=== PATIENT | male | born 1960 | race Caucasian/White ===

== ENCOUNTER → 2017-10-19 12:11 | Outpatient (CLI) | payer OTHER, SELFPAY ==
[2017-10-19 12:51] LABS: Abs Immature Grans 0.01 k/cumm (0.0-0.09); Absolute Basophil Count 0.02 k/cumm (0.0-0.2); Absolute Neutrophil Count 4.14 k/cumm (1.2-6.7); Basophils % 0.3; Eosinophils % 2.7; HCT 39.6 % (40.0-50.0); HGB 13.7 g/dL (13.5-17.5); Immature Grans % 0.1; Lymphocytes % 32.1; Mean Corp. HGB Concentration 34.6 g/dL (32.0-36.0); Mean Corpuscular Hemoglobin 34.8 pg (27.0-33.0); Mean Corpuscular Volume 100.5 fL (80-95); Mean Platelet Volume 10.5 fL (8.0-11.0); Monocytes % 9.4; Neutrophils % 55.4; Platelet Count 209 x1000/uL (130-400); RBC 3.94 m/cumm (4.50-6.00); White Blood Cell Count 7.47 k/cumm (4.4-10.8)
[2017-10-19 15:05] LABS: ALT 35 U/L (12-78); AST 19 U/L (15-37); Albumin 4.2 g/dL (3.4-5.0); Alkaline Phosphatase 68 U/L (46-116); Anion Gap 10.4 mmol/L (3-11); BUN 19 mg/dL (7-18); Bilirubin, Total 0.4 mg/dL (0.2-1.0); C-Reactive Protein 0.14 mg/dL (0.0-0.3); CO2 26.6 mmol/L (21.0-32.0); CREATININE 0.98 mg/dL (0.70-1.30); Calcium 8.6 mg/dL (8.5-10.1); Chloride 106 mmol/L (98-107); Glucose 121 mg/dL (70-100); Sodium 143 mmol/L (136-145); Total Protein 6.9 g/dL (6.4-8.2)
[2017-10-19 15:22] LABS: ESR 14 MM/HR (1-20)
== END ==
PROVIDERS: PCP Internal Medicine; Visit Provider Internal Medicine
DX: M06.9 Rheumatoid arthritis, unspecified (principal); Z79.899 Other long term (current) drug therapy
CPT/HCPCS: 36415; 80053; 85652; 85025; 86140

== ENCOUNTER 2018-02-21 14:01 | Outpatient (CLI) | payer OTHER, SELFPAY ==
[2018-02-21 14:24] LABS: Abs Immature Grans 0.01 k/cumm (0.0-0.09); Absolute Basophil Count 0.02 k/cumm (0.0-0.2); Absolute Eosinophil Count 0.34 k/cumm (0.0-0.7); Absolute Lymphocyte Count 2.91 k/cumm (1.2-3.4); Absolute Monocyte Count 0.76 k/cumm (0.11-0.7); Absolute Neutrophil Count 3.46 k/cumm (1.2-6.7); Basophils % 0.3; Eosinophils % 4.5; HCT 40.9 % (40.0-50.0); HGB 14.3 g/dL (13.5-17.5); Immature Grans % 0.1; Lymphocytes % 38.8; Mean Corpuscular Hemoglobin 35.7 pg (27.0-33.0); Mean Platelet Volume 10.2 fL (8.0-11.0); Monocytes % 10.1; Neutrophils % 46.2; Platelet Count 187 x1000/uL (130-400); RBC 4.01 m/cumm (4.50-6.00)
[2018-02-21 15:25] LABS: ALT 34 U/L (12-78); AST 27 U/L (15-37); Albumin 4.1 g/dL (3.4-5.0); Alkaline Phosphatase 62 U/L (46-116); Anion Gap 10.1 mmol/L (3-11); BUN 18 mg/dL (7-18); Bilirubin, Total 0.3 mg/dL (0.2-1.0); C-Reactive Protein 0.67 mg/dL (0.0-0.3); CO2 27.9 mmol/L (21.0-32.0); CREATININE 0.98 mg/dL (0.70-1.30); Calcium 8.7 mg/dL (8.5-10.1); Chloride 102 mmol/L (98-107); Glucose 80 mg/dL (70-100); Sodium 140 mmol/L (136-145); Total Protein 7.2 g/dL (6.4-8.2)
[2018-02-21 15:28] LABS: ESR 15 MM/HR (1-20)
== END 2018-02-21 14:21 ==
PROVIDERS: PCP Internal Medicine; Visit Provider Internal Medicine
DX: M06.9 Rheumatoid arthritis, unspecified (principal); Z79.899 Other long term (current) drug therapy
CPT/HCPCS: 36415; 80053; 85652; 85025; 86140

== ENCOUNTER 2018-05-30 12:30 | Outpatient (CLI) | payer BC, SELFPAY ==
[2018-05-30 12:56] LABS: Abs Immature Grans 0.01 k/cumm (0.0-0.09); Absolute Basophil Count 0.02 k/cumm (0.0-0.2); Absolute Eosinophil Count 0.22 k/cumm (0.0-0.7); Absolute Lymphocyte Count 2.71 k/cumm (1.2-3.4); Absolute Monocyte Count 0.71 k/cumm (0.11-0.7); Absolute Neutrophil Count 4.25 k/cumm (1.2-6.7); Basophils % 0.3; Eosinophils % 2.8; HCT 39.9 % (40.0-50.0); HGB 14.3 g/dL (13.5-17.5); Immature Grans % 0.1; Lymphocytes % 34.2; Mean Corp. HGB Concentration 35.8 g/dL (32.0-36.0); Mean Corpuscular Hemoglobin 35.8 pg (27.0-33.0); Mean Corpuscular Volume 99.8 fL (80-95); Mean Platelet Volume 10.3 fL (8.0-11.0); Neutrophils % 53.6; Platelet Count 188 x1000/uL (130-400); White Blood Cell Count 7.92 k/cumm (4.4-10.8)
[2018-05-30 13:40] LABS: ALT 31 U/L (12-78); AST 24 U/L (15-37); Albumin 4.2 g/dL (3.4-5.0); Alkaline Phosphatase 60 U/L (46-116); Anion Gap 11.4 mmol/L (3-11); BUN 17 mg/dL (7-18); Bilirubin, Total 0.4 mg/dL (0.2-1.0); C-Reactive Protein 0.13 mg/dL (0.0-0.3); CO2 26.6 mmol/L (21.0-32.0); CREATININE 0.96 mg/dL (0.70-1.30); Calcium 8.8 mg/dL (8.5-10.1); Chloride 104 mmol/L (98-107); Glucose 90 mg/dL (70-100); Potassium 3.8 mmol/L (3.5-5.1); Sodium 142 mmol/L (136-145); Total Protein 6.9 g/dL (6.4-8.2)
[2018-05-30 13:47] LABS: ESR 10 MM/HR (1-20)
== END 2018-05-30 12:50 ==
PROVIDERS: PCP Internal Medicine; Visit Provider Internal Medicine
DX: M06.9 Rheumatoid arthritis, unspecified (principal); Z79.899 Other long term (current) drug therapy
CPT/HCPCS: 36415; 80053; 85652; 85025; 86140

== ENCOUNTER 2018-07-02 11:17 | Outpatient (CLI) | payer BC, SELFPAY ==
[2018-07-02 13:38] LABS: Cholesterol 180 mg/dL (50-200); HDL Cholesterol 44 mg/dL (40-60); LDL CHOLESTEROL 116 mg/dL (<100); Triglyceride 153 mg/dL (30-150)
== END 2018-07-02 11:37 ==
PROVIDERS: PCP Internal Medicine; Visit Provider Internal Medicine
DX: E03.9 Hypothyroidism, unspecified (principal); Z13.220 Encounter for screening for lipoid disorders
CPT/HCPCS: 36415; 80061; 83721; 84443

== ENCOUNTER 2018-08-30 09:09 | Outpatient (CLI) | payer BC, SELFPAY ==
--- NOTE | 2018-08-30 09:09 | DI.US_ITS ---
SYMPTOM/DIAGNOSIS: SCROTAL MASS N50.9 DISORDER MALE GENITAL ORGAN SCROTAL ULTRASOUND: 08/30 Scrotal ultrasound was performed according to the usual protocol. The patient reportedly has palpable abnormality of the scrotum on the left. This corresponds to an apparent epididymal tail cyst measuring about 17 mm in diameter. Note is also made of an intratesticular cyst on the right which is a simple cyst. There are small bilateral spermatoceles, the largest measuring about 3 mm in diameter. There is mild dilatation of the rete testis on the right which is a nonspecific finding. Bilateral testicular microlithiasis also noted. There is a left hydrocele measuring about 5 cm in greatest diameter with some internal debris. CONCLUSION: No testicular mass identified. Left hydrocele and multiple cysts noted as described above.
== END 2018-08-30 09:29 ==
PROVIDERS: PCP Internal Medicine; Visit Provider Internal Medicine
DX: N50.9 Disorder of male genital organs, unspecified (principal); N43.3 Hydrocele, unspecified; N50.3 Cyst of epididymis; N44.2 Benign cyst of testis; N43.42 Spermatocele of epididymis, multiple
CPT/HCPCS: 76870

== ENCOUNTER 2018-10-15 11:01 | Outpatient (CLI) | payer BC, SELFPAY ==
[2018-10-15 11:43] LABS: Abs Immature Grans 0.02 k/cumm (0.0-0.09); Absolute Basophil Count 0.01 k/cumm (0.0-0.2); Absolute Eosinophil Count 0.08 k/cumm (0.0-0.7); Absolute Lymphocyte Count 2.08 k/cumm (1.2-3.4); Absolute Monocyte Count 0.57 k/cumm (0.11-0.7); Absolute Neutrophil Count 5.74 k/cumm (1.2-6.7); Basophils % 0.1; Eosinophils % 0.9; HCT 39.2 % (40.0-50.0); HGB 13.8 g/dL (13.5-17.5); Immature Grans % 0.2; Lymphocytes % 24.5; Mean Corp. HGB Concentration 35.2 g/dL (32.0-36.0); Mean Corpuscular Hemoglobin 34.8 pg (27.0-33.0); Mean Corpuscular Volume 98.7 fL (80-95); Mean Platelet Volume 10.3 fL (8.0-11.0); Monocytes % 6.7; Neutrophils % 67.6; Platelet Count 205 x1000/uL (130-400); RBC 3.97 m/cumm (4.50-6.00); RBC Distribution Width 12.6 % (11.8-14.1)
[2018-10-15 12:43] LABS: ESR 8 mm/hr (1-20)
[2018-10-15 12:55] LABS: ALT 34 U/L (12-78); AST 19 U/L (15-37); Albumin 3.9 g/dL (3.4-5.0); Alkaline Phosphatase 56 U/L (46-116); Anion Gap 10.7 mmol/L (3-11); BUN 16 mg/dL (7-18); Bilirubin, Total 0.3 mg/dL (0.2-1.0); CO2 24.3 mmol/L (21.0-32.0); CREATININE 0.98 mg/dL (0.70-1.30); Calcium 8.8 mg/dL (8.5-10.1); Chloride 108 mmol/L (98-107); Glucose 111 mg/dL (70-100); Potassium 4.5 mmol/L (3.5-5.1); Sodium 143 mmol/L (136-145); Total Protein 6.8 g/dL (6.4-8.2)
== END 2018-10-15 11:21 ==
PROVIDERS: PCP Internal Medicine; Visit Provider Internal Medicine
DX: M06.9 Rheumatoid arthritis, unspecified (principal); Z79.899 Other long term (current) drug therapy
CPT/HCPCS: 36415; 80053; 85652; 85025; 86140

== ENCOUNTER 2019-02-06 13:29 | Outpatient (CLI) | payer BC, SELFPAY ==
[2019-02-06 14:07] LABS: Abs Immature Grans 0.02 k/cumm (0.0-0.09); Absolute Basophil Count 0.03 k/cumm (0.0-0.2); Absolute Eosinophil Count 0.21 k/cumm (0.0-0.7); Absolute Lymphocyte Count 3.44 k/cumm (1.2-3.4); Absolute Monocyte Count 0.84 k/cumm (0.11-0.7); Absolute Neutrophil Count 4.95 k/cumm (1.2-6.7); Basophils % 0.3; Eosinophils % 2.2; HCT 41.9 % (40.0-50.0); HGB 14.8 g/dL (13.5-17.5); Immature Grans % 0.2; Lymphocytes % 36.2; Mean Corp. HGB Concentration 35.3 g/dL (32.0-36.0); Mean Corpuscular Hemoglobin 35.2 pg (27.0-33.0); Mean Corpuscular Volume 99.8 fL (80-95); Mean Platelet Volume 10.7 fL (8.0-11.0); Monocytes % 8.9; Neutrophils % 52.2; Platelet Count 212 x1000/uL (130-400); RBC Distribution Width 13.1 % (11.8-14.1); White Blood Cell Count 9.49 k/cumm (4.4-10.8)
[2019-02-06 14:27] LABS: ALT 30 U/L (16-63); AST 21 U/L (15-37); Albumin 4.1 g/dL (3.4-5.0); Alkaline Phosphatase 63 U/L (46-116); Anion Gap 8.7 mmol/L (3-11); BUN 19 mg/dL (7-18); Bilirubin, Total 0.2 mg/dL (0.2-1.0); CO2 28.3 mmol/L (21.0-32.0); CREATININE 0.89 mg/dL (0.70-1.30); Chloride 107 mmol/L (98-107); Glucose 89 mg/dL (74-106); Potassium 3.9 mmol/L (3.5-5.1); Sodium 144 mmol/L (136-145); Total Protein 7.3 g/dL (6.4-8.2)
[2019-02-06 14:55] LABS: ESR 13 mm/hr (1-20)
== END 2019-02-06 13:49 ==
PROVIDERS: PCP Internal Medicine; Visit Provider Internal Medicine
DX: M06.9 Rheumatoid arthritis, unspecified (principal); Z79.899 Other long term (current) drug therapy
CPT/HCPCS: 36415; 80053; 85652; 85025; 86140

== ENCOUNTER 2019-08-20 04:04 | Outpatient (CLI) | payer BC, SELFPAY ==
[2019-08-20 11:07] LABS: Abs Immature Grans 0.01 k/cumm (0.0-0.09); Absolute Basophil Count 0.01 k/cumm (0.0-0.2); Absolute Eosinophil Count 0.28 k/cumm (0.0-0.7); Absolute Lymphocyte Count 3.23 k/cumm (1.2-3.4); Absolute Monocyte Count 0.86 k/cumm (0.11-0.7); Absolute Neutrophil Count 4.87 k/cumm (1.2-6.7); Basophils % 0.1; HCT 40.8 % (40.0-50.0); HGB 14.5 g/dL (13.5-17.5); Immature Grans % 0.1 %; Lymphocytes % 34.9; Mean Corp. HGB Concentration 35.5 g/dL (32.0-36.0); Mean Corpuscular Hemoglobin 34.9 pg (27.0-33.0); Mean Corpuscular Volume 98.1 fL (80-95); Mean Platelet Volume 10.4 fL (8.0-11.0); Monocytes % 9.3; Neutrophils % 52.6; Platelet Count 231 x1000/uL (130-400); RBC 4.16 m/cumm (4.50-6.00); RBC Distribution Width 12.7 % (11.8-14.1); White Blood Cell Count 9.26 k/cumm (4.4-10.8)
[2019-08-20 11:56] LABS: ALT 36 U/L (16-63); AST 26 U/L (15-37); Albumin 4.3 g/dL (3.4-5.0); Alkaline Phosphatase 62 U/L (46-116); Anion Gap 11.2 mmol/L (3-11); BUN 22 mg/dL (7-18); Bilirubin, Total 0.5 mg/dL (0.2-1.0); C-Reactive Protein 0.14 mg/dL (0.0-0.3); CO2 25.8 mmol/L (21.0-32.0); CREATININE 1.08 mg/dL (0.70-1.30); Calcium 8.8 mg/dL (8.5-10.1); Chloride 103 mmol/L (98-107); Glucose 106 mg/dL (74-106); Potassium 3.8 mmol/L (3.5-5.1); Sodium 140 mmol/L (136-145)
[2019-08-20 12:18] LABS: ESR 11 mm/hr (1-20)
== END 2019-08-20 04:24 ==
PROVIDERS: PCP Internal Medicine; Visit Provider Internal Medicine
DX: M06.9 Rheumatoid arthritis, unspecified (principal); Z79.899 Other long term (current) drug therapy
CPT/HCPCS: 36415; 80053; 85652; 85025; 86140

== ENCOUNTER 2019-08-25 12:32 | Emergency (ER) | payer BC, SELFPAY ==
[2019-08-25 12:38] VITALS: BP 124/80; PULSE 72; RESP 15; TEMP 36.9; O2SAT 100
--- NOTE | 2019-08-25 13:00 | DI.RAD_ITS ---
EXAM: XR HAND RT COMPLETE CLINICAL HISTORY: pain 4th, 5th. TECHNIQUE: 2D digital imaging was performed. COMPARISON: No exams were available for comparison FINDINGS: There is a comminuted oblique fracture the right 5th metacarpal. There is 3 mm of anterior displacem ent of the distal fracture noted. No other fracture or dislocation is identified. There is soft tis durga swelling about the ulnar aspect of the hand. No radiopaque foreign bodies are identified. IMPRESSION: Mildly displaced comminuted fracture of the right 5th metacarpal. DATA REPOSITORY: RADIATION DOSE DELIVERED:
--- NOTE | 2019-08-25 13:08 | ED.GENADUL_ITS ---
Discharge Plan Disposition Patient Disposition: HOME Condition: Stable Discharge Details Chief Complaint: Orthopedic Clinical Impression: Laceration, Fracture of fifth metacarpal bone Primary Care Provider: Joellen Wynne ED Provider: Charla Loving Home Meds and New Rx's Prescriptions: Continued multivitamin [Daily Multi-Vitamin] 1 EACH tablet 1 ea PO DAILY RF: 0 calcium carbonate [Calcium 600] 600 MG tablet 600 mg PO DAILY RF: 0 cholecalciferol (vitamin D3) [Vitamin D3] 2,000 UNIT capsule 2,000 unit PO DAILY RF: 0 methotrexate sodium 2.5 MG tablet 10 mg PO WEEKLY Qty: 16 RF: 3 folic acid 1 MG tablet 1 mg PO DAILY Qty: 30 RF: 3 Humira 40 MG/0.8 ML kit 40 mg SQ q 2 wks RF: 0 oxycodone-acetaminophen [Endocet] 1 EACH tablet 1 ea PO Q12H PRN PRNRF: 0 hydroxychloroquine 200 MG tablet 200 mg PO BID RF: 0 albuterol sulfate [ProAir HFA] 8.5 GM HFA aerosol inhaler 2 puff Inhalation q4 PRNQty: 1 RF: 12 mometasone [Nasonex] 17 GM spray,non-aerosol 2 spry NS DAILY RF: 0 montelukast 10 MG tablet 10 mg PO DAILY RF: 0 levothyroxine [Synthroid] 100 mcg tablet 100 mcg PO DAILY Qty: 90 RF: 2 Discharge Instructions Instructions: Laceration (ED) Additional Instructions: Keep splint in place, clean and dry. Elevate arm for swelling. Ice over the splint 3-5 times a day. Use Tylenol for discomfort if needed or use your daily medications. Follow-up with orthopedic doctor for reevaluation this week as discussed. For any developing concerns of infection in the finger return to the emergency room. Return for any worsening, concerns or alarming symptoms sooner if needed Referrals: Juan Thomas MD [ [facility] STAFF PHYSICIAN] - Medical Decision Making Is a 59-year-old patient who accidentally struck his right hand into the block of a machine. Patient presents complaining of right hand pain. Injury occurred prior to arrival at work. Patient does have wounds noted to his third fourth and fifth digit the most significant of which is the fourth digit which has a laceration 2 cm irregularly shaped noted over the PIP joint dorsally. No palmar involvement. Patient does have notable swelling to the fifth metacarpal with tenderness with palpation of the site. Patient does not have any scissoring of his digits when making a fist. Patient denies any numbness, tingling or weakness of the hand. Patient denies any wrist pain or indication of proximal injury. Patient has no other injuries or concerns today. Patient's tetanus is up-to-date last year. Plan to obtain x-ray evaluation of patient's hand for concern of possible fracture. Minor superficial wound of the third digit, laceration of the fourth digit plan to suture, small flap less than 1 cm laceration to the fifth digit plan to managed with wound care. Fourth digit laceration, area was prepped. Lidocaine locally, 5 sutures placed. Good wound approximation. Nothing to indicate ligamentous injury or deep extension, no joint involvement noted on exploration of wound. Dressings applied X-ray reveals mildly displaced comminuted fracture of the right 5th metacarpal. Spoke with Dr. Thomas of orthopedic surgery who reviewed patient's images and recommends ulnar gutter splint. Made him aware of the laceration noted on the fourth digit. He recommends keeping dressing in place until they will evaluate both the laceration and the fracture in the office next week. This recommendation was provided to the patient. Patient agrees with this plan of care. Added ulnar gutter splint placed with 4 inch Ortho-Glass. Patient tolerated without difficulty. Remains distal neurovascularly intact after splinting Infection precautions discussed as patient is immunocompromised on Humira due to RA The patient was stable and requested discharge. Prior to discharge, my usual and customary return precautions were reviewed with the patient - this included follow-up instructions and reasons to return to the Emergency Department if conditions worsens, does not improve as expected, or other new concerns arise. HPI General Date/Time Provider Initiated Documentation: 08/25/19 13:02 . HPI Narrative: This is a 59-year-old patient presented to the emergency room for complaints of a right hand injury. Patient was working and he accidentally struck his right hand on the hydraulics in the position of a fist. Patient presents with lacerations to the fourth and fifth digits as well as complaints of pain at the fifth metacarpal. Patient denies numbness, tingling or weakness. No pain proximal to the wrist. Denies any wrist pain with flexion or extension. Patient reports his tetanus was up-to-date last year. Patient denies any other sites of pain or concerns. Injury occurred prior to arrival. Related Data Home Medications Medication Instructions Recorded Confirmed multivitamin [Daily Multi-Vitamin] 1 ea PO DAILY 05/29/12 08/25/19 calcium carbonate [Calcium 600] 600 mg PO DAILY 01/27/14 08/25/19 cholecalciferol (vitamin D3) 2,000 unit PO DAILY 01/27/14 08/25/19 [Vitamin D3] folic acid 1 mg PO DAILY #30 tab-cap 05/05/14 08/25/19 methotrexate sodium 10 mg PO WEEKLY #16 tab 05/05/14 08/25/19 Humira 40 mg SQ q 2 wks kit 07/13/14 08/25/19 hydroxychloroquine 200 mg PO BID 12/31/14 08/25/19 oxycodone-acetaminophen [Endocet] 1 ea PO Q12H PRN PRN 12/31/14 08/25/19 albuterol sulfate [ProAir HFA] 2 puff INHALATION q4 PRN #1 inhaler 06/05/16 08/25/19 mometasone [Nasonex] 2 spry NS DAILY spray 08/17/16 08/25/19 montelukast 10 mg PO DAILY tab-cap 08/17/16 08/25/19 levothyroxine 100 mcg tablet 100 mcg PO DAILY #90 tab-cap 06/03/19 08/25/19 Previous Rx's Medication Instructions Recorded levothyroxine 100 mcg tablet 100 mcg PO DAILY #90 tab-cap 06/03/19 Allergies Allergy/AdvReac Type Severity Reaction Status Date / Time No Known Allergies Allergy Verified 08/25/19 12:43 General Stated Complaint: Orthopedic SIOBHAN: 4 Review of Systems All systems reviewed & are unremarkable except as noted in HPI and below PFSH Surgical History Excision, Lipoma Skin of cheek Right Orbital Rim, Excision: -Basal cell carcinoma,nodular type. -margins of excision negative, but close (surg path note 09/07/16) Family History (Updated 04/21/14 @ 22:12 by Joellen Wynne MD) Brother No problems noted. Other Prostate cancer Social History Smoking/Tobacco Use Status: Former Tobacco Use Alcohol Intake: never Drug use: Never Substance use type: does not use Number of Children: 4 Communication Needs: None What is your relationship status?: Panel score (0-1 are the most socially isolated patients): 1 What type of physical activity do you participate in: other Details: active daily Seatbelt use: always Drive intox or ride w/intox transfer driver: No Working smoke detector in home: Yes Carbon monox detector in home: Yes Do you feel safe at home: Yes Do you feel safe in your relationship?: Yes Exam Narrative Exam Narrative: CONST: Healthy appearing patient, in no acute distress. Well hydrated. Alert and oriented. HENMT: Head nomocephalic, normal to inspection. Atraumatic. Hearing grossly normal. EYES: General normal appearance. Alignment normal. Eyelids normal. Conjunctiva normal. NECK: Normal visual inspection. FROM. Trachea midline. No Midline tenderness. CHEST: Normal insepection of the chest. RESP: Normal respiratory effort. Speaking full sentences. No cough. No audible wheezing. No retractions. CARDIO: No JVD. MUSCULOSKELETAL: Normal Gait. FROM of all extremities. No right elbow pain with palpation, forearm pain with palpation or wrist pain with palpation. Flexion extension intact and wrist. Patient has no significant first or second digit pain with palpation. Mild third digit pain with palpation, moderate fourth and fifth metacarpal tenderness. Swelling noted over the fifth metacarpal distally. Patient with lacerations noted to the fourth and fifth digits. Patient has a 2 cm laceration noted on the dorsal aspect overlying the PIP joint of the fourth digit. Small V-shaped flap type laceration over the PIP joint of the fifth digit more superficial. Sensation intact throughout hand. SKIN: Normal. Dry. No rashes. See above description of lacerations on fourth and fifth digits NEURO: Alert and awake. Speech clear. PSYCH: Normal affect. Cooperative. Course Vital Signs Vital signs: Vital Signs Temperature 36.9 C 08/25/19 12:38 Pulse 72 08/25/19 12:38 Respiratory Rate 15 08/25/19 12:38 Blood Pressure 124/80 08/25/19 12:38 Pulse Oximetry 100 08/25/19 12:38 Temperature 36.9 C 08/25/19 12:38 Temperature Source Oral 08/25/19 12:38 Pulse 72 08/25/19 12:38 Respiratory Rate 15 08/25/19 12:38 Respiratory Effort Non-Labored 08/25/19 12:43 Blood Pressure 124/80 08/25/19 12:38 Blood Pressure Position Sitting 08/25/19 12:38 Pulse Oximetry 100 08/25/19 12:38 Oxygen Delivery Method Room Air 08/25/19 12:38 Oxygen Flow Rate 0 08/25/19 12:38 Pain Level 3 08/25/19 12:48 Procedures Laceration Laceration 1: Side (If applicable): right Size (cm): 2 Description: irregular Depth: simple, single layer Local Anesthetic: Lidocaine 1% Amount of anesthesia used (mL): 1 Pre-repair: wound explored Skin layer closed with: other (prolene) Size (cm): 4-0 Number of sutures: 5 Technique: simple, interrupted
[2019-08-25 16:10] VITALS: BP 124/80; PULSE 72; RESP 15; TEMP 36.9; O2SAT 100
== END 2019-08-25 16:10 | disposition home or self-care (01) ==
PROVIDERS: Emergency Provider Physician Assistant; PCP Internal Medicine
DX: S62.321A Displaced fracture of shaft of second metacarpal bone, left hand, initial encounter for closed fracture (principal); W31.89XA Contact with other specified machinery, initial encounter; Y99.0 Civilian activity done for income or pay
CPT/HCPCS: 12001; 26600; 73130

== ENCOUNTER 2019-08-29 03:57 | Outpatient (CLI) | payer BC, SELFPAY ==
--- NOTE | 2019-08-29 10:13 | DI.RAD_ITS ---
EXAM: XR FOOT LT COMPLETE CLINICAL HISTORY: PAIN, EVALUATE FOR EROSIVE CHANGES,NIEVES METATARSAL ROWS,NIEVES GREAT TOE TECHNIQUE: COMPARISON: No exams were available for comparison FINDINGS: Three views were obtained. The cartilaginous joint spaces of the joints of the midfoot and forefoot appear fairly well maintained. The requisition raises the possibility of erosive changes, I would no te that there may be tiny erosions of the lateral aspect base of the proximal phalanx of the great to e, this is a questionable finding. No other erosive or destructive process seen. IMPRESSION: Question minimal erosion lateral aspect of the base of the proximal phalanx of the great toe, please correlate clinically.
== END 2019-08-29 04:17 ==
PROVIDERS: PCP Internal Medicine; Visit Provider Internal Medicine
DX: M79.672 Pain in left foot (principal); M79.675 Pain in left toe(s)
CPT/HCPCS: 73630

== ENCOUNTER 2019-09-04 00:42 | Outpatient (CLI) | payer BC, SELFPAY ==
--- NOTE | 2019-09-04 | DI.CT_ITS ---
EXAM: CT SINUS WO CLINICAL HISTORY: NASAL POLYP, J33.9. Evaluate for sinusitis. TECHNIQUE: Imaging Protocol: Axial computed tomography images with coronal and sagittal reformatted images were created and reviewed. COMPARISON: No exams were available for comparison FINDINGS: AXIAL IMAGES: Frontal sinuses: Complete opacification of the right frontal sinus. Mild mucosal thickening in the l eft frontal sinus. Ethmoid air cells: Opacification of almost all of the ethmoid air cells bilaterally. Maxillary sinuses: Postsurgical changes in the maxillary sinuses. Near complete opacification of the maxillary sinuses bilaterally. Sphenoid sinus: Mild mucosal thickening in the sphenoid sinuses bilaterally. Ostiomeatal complexes: Postsurgical changes in the paranasal sinuses. Osseous nasal septum: Midline. Visualized regional soft tissues: No acute findings. Orbits: Unremarkable. Bones: Unremarkable. Mastoid Air Cells: Normally aerated. IMPRESSION: 1. Postsurgical changes in the paranasal sinuses. 2. Findings of chronic sinusitis most marked in the ethmoids, maxillary and frontal sinuses. RADIATION DOSE DELIVERED: Total DLP DATA REPOSITORY: All CT scans at this facility are submitted to the National Radiology Data Registry (NRDR) Dose Index Registry (DIR) with the [employer] (ACR). RADIATION OPTIMIZATION: All CT scans at this facility use at least one of these dose optimization te chniques: automated exposure control; mA and/or kV adjustment per patient size (includes targeted exa ms where dose is matched to clinical indication); or iterative reconstruction.
== END 2019-09-04 01:02 ==
PROVIDERS: PCP Internal Medicine; Visit Provider Otolaryngology
DX: J33.9 Nasal polyp, unspecified (principal); J32.2 Chronic ethmoidal sinusitis; J32.1 Chronic frontal sinusitis; J32.0 Chronic maxillary sinusitis
CPT/HCPCS: 70486

== ENCOUNTER 2019-12-05 03:09 | Outpatient (CLI) | payer BC, SELFPAY ==
[2019-12-05 14:38] LABS: TSH (W/Ref FT4) 3.16 uIU/mL (0.36-3.74)
== END 2019-12-05 03:29 ==
PROVIDERS: PCP Internal Medicine; Visit Provider Internal Medicine
DX: E03.9 Hypothyroidism, unspecified (principal)
CPT/HCPCS: 36415; 84443

== ENCOUNTER 2020-01-05 09:19 | Outpatient (CLI) | payer BC, SELFPAY ==
--- NOTE | 2020-01-05 09:15 | DI.RAD_ITS ---
EXAM: XR SHOULDER LT COMPLETE 2+V CLINICAL HISTORY: left shoulder pain. TECHNIQUE: 2D digital imaging was performed. COMPARISON: No exams were available for comparison FINDINGS: BONES: No acute fracture is present. No bony destructive lesion is seen. JOINTS: No dislocation present. Mild degenerative changes at the acromioclavicular joint. The glenoh umeral joint is unremarkable. SOFT TISSUE: Normal. IMPRESSION: Mild degenerative changes of the left AC joint. DATA REPOSITORY: RADIATION DOSE DELIVERED:
== END 2020-01-05 09:39 ==
PROVIDERS: PCP Internal Medicine; Referring Provider Internal Medicine; Visit Provider Physician Assistant
DX: M19.012 Primary osteoarthritis, left shoulder (principal)
CPT/HCPCS: 73030

== ENCOUNTER 2020-01-09 03:20 | Outpatient (CLI) | payer BC, SELFPAY ==
[2020-01-11 11:37] LABS: SARS-CoV-2 RNA Not Detected (NotDetected); SARS-CoV-2 RNA Source Nasal/Nares
== END 2020-01-09 03:40 ==
PROVIDERS: PCP Internal Medicine; Visit Provider Internal Medicine
DX: Z11.59 Encounter for screening for other viral diseases (principal); Z01.818 Encounter for other preprocedural examination
CPT/HCPCS: U0003

== ENCOUNTER 2020-01-19 00:28 | Outpatient (CLI) | payer BC, SELFPAY ==
--- NOTE | 2020-01-19 06:45 | DI.MRI_ITS ---
EXAM: MR UPPER JOINT LT WO CLINICAL HISTORY: L SHOULDER PAIN,BICEPS TENDINITIS,M75.22,STRAIN OF MUSCLE,TENDON,S46.012A. TECHNIQUE: Multiplanar multisequence MRI was performed. COMPARISON: CR XR SHOULDER LT COMPLETE 2+V from 01/05/2020 FINDINGS: BONES: There is no fracture or contusion pattern. JOINTS: Moderate degenerative changes of the acromioclavicular joint. The glenohumeral joint is norm al. Mild degenerative changes seen in the greater tuberosity. TENDONS: Supraspinatus: Tendinosis of the supraspinatus tendon. Hyperintense signal seen in the mid supraspin atus tendon suspicious for partial tear. Infraspinatus: Unremarkable. Subscapularis: Tendinosis and/or partial tear of the subscapularis tendon at its insertion site. Teres Minor: Unremarkable. Biceps and [place]: Mild tendinosis of the biceps tendon. MUSCLES: Unremarkable. GLENOID LABRUM: Unremarkable on this noncontrast examination. SOFT TISSUES: Unremarkable. LIGAMENTS: Unremarkable. OTHER: Subacromial and subdeltoid bursae are unremarkable. IMPRESSION: 1. Findings suspicious for partial tear in the mid supraspinatus tendon. 2. Tendinosis and/or partial tear of the subscapularis tendon at its insertion site. 3. Tendinosis of the biceps tendon. 4. Degenerative changes seen at the acromioclavicular joint and greater tuberosity. DATA REPOSITORY:
== END 2020-01-19 00:48 ==
PROVIDERS: PCP Internal Medicine; Visit Provider Student in an Organized Health Care Education/Training Program
DX: M75.22 Bicipital tendinitis, left shoulder (principal); S46.012A Strain of muscle(s) and tendon(s) of the rotator cuff of left shoulder, initial encounter; M19.012 Primary osteoarthritis, left shoulder
CPT/HCPCS: 73221

== ENCOUNTER 2020-02-19 01:42 | Outpatient (CLI) | payer BC, SELFPAY ==
[2020-02-19 13:31] LABS: HCT 39.8 % (40.0-50.0); HGB 13.9 g/dL (13.5-17.5); MCH 35.3 pg (27.0-33.0); MCHC 34.9 % (32.0-36.0); MPV 10.2 fL (8.0-11.0); Platelet Count 238 10^3/uL (130-400); RBC 3.94 10^6/uL (4.36-5.78); RDW 12.6 % (11.8-14.1); RDW-SD 47.4 fL; WBC 7.42 10^3/uL (4.4-10.8)
[2020-02-19 14:17] LABS: ESR 18 mm/hr (1-20)
[2020-02-19 14:35] LABS: ALT 43 U/L (16-63); AST 26 U/L (15-37); Alkaline Phosphatase 65 U/L (46-116); Anion Gap 9.5 mmol/L (3-11); BUN 16 mg/dL (7-18); Bilirubin, Total 0.4 mg/dL (0.2-1.0); C-Reactive Protein 0.15 mg/dL (0.0-0.3); CO2 26.5 mmol/L (21.0-32.0); CREATININE 1.06 mg/dL (0.70-1.30); Calcium 8.9 mg/dL (8.5-10.1); Chloride 105 mmol/L (98-107); Glucose 102 mg/dL (74-106); Sodium 141 mmol/L (136-145)
== END 2020-02-19 02:02 ==
PROVIDERS: PCP Internal Medicine; Visit Provider Internal Medicine
DX: N06.9 Isolated proteinuria with unspecified morphologic lesion (principal); Z79.899 Other long term (current) drug therapy
CPT/HCPCS: 36415; 80053; 85027; 85652; 86140

== ENCOUNTER 2020-03-04 01:46 | Outpatient (CLI) | payer BC, SELFPAY ==
--- NOTE | 2020-03-04 13:40 | DI.DEXA_ITS ---
EXAM: XR DEXA BONE DENSITY W/WO BRANDEE CLINICAL HISTORY: FRACTURES INVOLVING MULT SITES,T07.XXXA,SEROPOSITIVE RHEUMATOID ARTHRITIS, TECHNIQUE: Routine DEXA evaluation of the lumbar spine, hip, or forearm. COMPARISON: No exams were available for comparison FINDINGS: Performed on a Hologic unit. Lateral image: No compression fracture evident. Lumbar Spine total T-score: -1.3 Hip total T-score:-1.3 independent reading at the femoral neck yields a T-score reading of -2.1. Forearm total T-score: -1.5 IMPRESSION: Bone mineral density measures in the osteopenia range. Fracture risk is moderate. Note: Any spine fracture indicates 5x risk for subsequent spine fracture and 2x risk for subsequent h ip fracture. World Health Organization criteria for BMD interpretation classify patients: Normal...... T- Score at or above -1.0 Osteopenic... T- Score between -1.0 and -2.5 Osteoporosis... T-Score at or below -2.5
== END 2020-03-04 02:06 ==
PROVIDERS: PCP Internal Medicine; Visit Provider Internal Medicine
DX: M85.89 Other specified disorders of bone density and structure, multiple sites (principal); M05.9 Rheumatoid arthritis with rheumatoid factor, unspecified
CPT/HCPCS: 77080

== ENCOUNTER 2020-06-15 08:28 | Day surgery (SDC) | payer BC, SELFPAY ==
--- NOTE | 2020-06-15 07:53 | W.PM.DSUDISC ---
Discharge Plan Disposition Patient Disposition: HOME Condition: Good Discharge Details Reason For Visit: Right ring finger trigger finger Attending Provider: Jose Oliver Primary Care Provider: Joellen Wynne Home Meds and New Rx's Prescriptions: New acetaminophen [Tylenol Extra Strength] 500 mg tablet 500 mg PO Q6H PRNQty: 90 RF: 0 ibuprofen 600 mg tablet 600 mg PO TID Qty: 90 RF: 0 Continued multivitamin [Daily Multi-Vitamin] 1 EACH tablet 1 ea PO DAILY RF: 0 calcium carbonate [Calcium 600] 600 MG tablet 600 mg PO DAILY RF: 0 cholecalciferol (vitamin D3) [Vitamin D3] 2,000 UNIT capsule 2,000 unit PO DAILY RF: 0 methotrexate sodium 2.5 MG tablet 10 mg PO WEEKLY Qty: 16 RF: 3 folic acid 1 MG tablet 1 mg PO DAILY Qty: 30 RF: 3 Humira 40 MG/0.8 ML kit 40 mg SQ q 2 wks RF: 0 hydroxychloroquine 200 MG tablet 200 mg PO BID RF: 0 albuterol sulfate [ProAir HFA] 8.5 GM HFA aerosol inhaler 2 puff Inhalation q4 PRNQty: 1 RF: 12 montelukast 10 MG tablet 10 mg PO DAILY RF: 0 levothyroxine [Synthroid] 100 mcg tablet 100 mcg PO DAILY Qty: 90 RF: 2 budesonide 32 mcg/actuation spray,non-aerosol 1 spray intranasal DAILY RF: 0 Discharge Instructions Stand Alone Forms: Melody Rivera Finger Release Referrals: Jose Oliver MD [ [facility] STAFF PHYSICIAN] - Activity:: Activity as Tolerated Remove Dressings/Wound Care:: 72 hours Shower/Bathe:: 72 hours Diet:: As Tolerated Discharge Orders Discharge Orders: Discharge Order (Routine); Ordered 06/15/20 Ordered By: Carey Mercer DS: Diagnosis Discharge Diagnosis (1) Trigger finger, right ring finger: Status: Acute
[2020-06-15 08:33] VITALS: BP 140/88; PULSE 79; RESP 18; TEMP 37; O2SAT 96
[2020-06-15] MEDS: Sodium Bicarbonate 50 MEQ/50 ML VIAL (10:18)
--- NOTE | 2020-06-15 15:27 | ROE_ITS ---
Date of service: 06/15/20 Time of Service: 10:27 Operative Note Operative Note DATE OF PROCEDURE: 06/15/20 PRE-OP DIAGNOSIS: Right Ring Finger Trigger Finger POST-OP DIAGNOSIS: same PROCEDURE: Trigger Finger Release - Right Ring Finger SURGEON: Jose Oliver ANESTHESIA TYPE: Local By Surgeon Refer to Anesthesia Record ESTIMATED BLOOD LOSS: 0 PATHOLOGY: none sent COMPLICATIONS: None Patient was transported to: same day Patient's condition: stable Indications: I have seen Brent in clinic for symptoms of a trigger finger. The catching, clicking, locking, and pain limited function. The diagnosis of trigger finger was evident. The symptoms had not responded to conservative measures. I discussed trigger finger release with the patient. I reviewed the risks of the procedure to include, but not limited to, bleeding, infection, pain, stiffness, incomplete release, damage to nerves or vessels, continued catching, recurrence. Despite these risks, the patient elected to proceed. Findings: There was a tightened A1 monica which was released. The flexor tendons were inspected and the patient was able to move the finger without any catching, clicking, or locking. Procedure Description: Brent was greeted in the preoperative holding area where the correct side was identified and marked. The consent was reviewed with the patient and signed. All questions were answered. He was taken back to the operating room. The patient was placed into the supine position on the operating room table with the right arm on an arm board. All bony prominences were well padded. No prophylactic antibiotics were administered since this was a clean, elective hand surgical case. The right arm was then prepped with Chloraprep and draped in a standard fashion with stockinette and extremity drape. A timeout to confirm correct identity, side an d site, procedure, allergies, anesthesia, and medical concerns was performed. The surgical site was marked as a longitudinal incision directly over the A1 monica of the involved digit. This was confirmed with palpation during finger flexion. This area, overlying the metacarpal head, was then anesthetized with 1% Lidocaine. The patient tolerated this well and once the anesthetic had setup, the procedure began. A longitudinal incision was made through skin only, approximately 1cm. The deep tissues were dissected bluntly. Once the A1 monica and flexor tendons were identified the soft tissue including neurovascular structures were retracted medially and laterally. There were no crossing structures over the A1 monica. The proximal edge of the monica was identified and the monica was incised with tenotomy scissors. There was a release of the tendons once this was fully released. The tendons were then removed from the wound and inspected. Excess synovium was resected. The tendons were then returned and the patient was asked to move the finger into deep flexion and back to extension. There was no recreation of the pre-operative symptoms. The hand was then once more inspected for any A0 monica or area of possible constriction. The wound was then irrigated and the skin was closed with a 4-0 Nylon. This was dressed with gauze and a Conform dressing. The patient tolerated the procedure well and was returned to the Same Day Surgery area in a stable condition suffering no known complication.
== END 2020-06-15 10:35 | disposition home or self-care (01) ==
LOC: SUR 08:28
PROVIDERS: PCP Internal Medicine; Visit Provider Student in an Organized Health Care Education/Training Program
PROC: (CPT 26055; principal; 2020-06-15 09:45)
DX: M65.341 Trigger finger, right ring finger (principal)
CPT/HCPCS: 26055

== ENCOUNTER 2020-07-22 03:16 | Outpatient (CLI) | payer BC, SELFPAY ==
[2020-07-22 13:05] LABS: ESR 11 mm/hr (0-20); HCT 38.3 % (40.0-50.0); HGB 13.6 g/dL (13.5-17.5); MCH 35.3 pg (27.0-33.0); MCHC 35.5 % (32.0-36.0); MCV 99.5 fL (80-95); MPV 10.2 fL (8.0-11.0); Platelet Count 205 10^3/uL (130-400); RBC 3.85 10^6/uL (4.36-5.78); RDW 12.8 % (11.8-14.1); RDW-SD 46.5 fL
[2020-07-22 15:07] LABS: ALT 31 U/L (16-63); AST 22 U/L (15-37); Albumin 3.9 g/dL (3.4-5.0); Alkaline Phosphatase 65 U/L (46-116); Anion Gap 11.1 mmol/L (3-11); BUN 19 mg/dL (7-18); Bilirubin, Total 0.4 mg/dL (0.2-1.0); C-Reactive Protein 0.25 mg/dL (0.0-0.3); CO2 24.9 mmol/L (21.0-32.0); Calcium 8.7 mg/dL (8.5-10.1); Chloride 106 mmol/L (98-107); Glucose 130 mg/dL (74-106); Potassium 3.8 mmol/L (3.5-5.1); Sodium 142 mmol/L (136-145); Total Protein 6.9 g/dL (6.4-8.2)
== END 2020-07-22 03:17 | disposition home or self-care (01) ==
LOC: LBO 03:16
PROVIDERS: PCP Internal Medicine; Visit Provider Internal Medicine
DX: Z79.899 Other long term (current) drug therapy; M05.9 Rheumatoid arthritis with rheumatoid factor, unspecified
CPT/HCPCS: 36415; 80053; 85027; 85652; 86140

== ENCOUNTER 2020-08-10 11:39 | Day surgery (SDC) | payer BC, SELFPAY ==
--- NOTE | 2020-08-10 10:38 | W.PM.DSUDISC ---
Discharge Plan Disposition Patient Disposition: HOME Condition: Good Discharge Details Reason For Visit: Flexor Tenosynovectomy Attending Provider: Jose Oliver Primary Care Provider: Joellen Wynne Home Meds and New Rx's Prescriptions: New hydrocodone-acetaminophen 5-325 mg tablet 1 tab PO Q6H PRNQty: 5 RF: 0 acetaminophen [Tylenol Extra Strength] 500 mg tablet 500 mg PO Q6H PRNQty: 90 RF: 0 ibuprofen 600 mg tablet 600 mg PO TID Qty: 90 RF: 0 Continued multivitamin [Daily Multi-Vitamin] 1 EACH tablet 1 ea PO DAILY RF: 0 calcium carbonate [Calcium 600] 600 MG tablet 600 mg PO DAILY RF: 0 cholecalciferol (vitamin D3) [Vitamin D3] 2,000 UNIT capsule 2,000 unit PO DAILY RF: 0 methotrexate sodium 2.5 MG tablet 10 mg PO WEEKLY Qty: 16 RF: 3 folic acid 1 MG tablet 1 mg PO DAILY Qty: 30 RF: 3 Humira 40 MG/0.8 ML kit 40 mg SQ q 2 wks RF: 0 hydroxychloroquine 200 MG tablet 200 mg PO BID RF: 0 albuterol sulfate [ProAir HFA] 8.5 GM HFA aerosol inhaler 2 puff Inhalation q4 PRNQty: 1 RF: 12 montelukast 10 MG tablet 10 mg PO DAILY RF: 0 levothyroxine [Synthroid] 100 mcg tablet 100 mcg PO DAILY Qty: 90 RF: 2 budesonide 32 mcg/actuation spray,non-aerosol 1 spray intranasal DAILY RF: 0 acetaminophen [Tylenol Extra Strength] 500 mg tablet 500 mg PO Q6H PRNQty: 90 RF: 0 ibuprofen 600 mg tablet 600 mg PO TID Qty: 90 RF: 0 Discharge Instructions Additional Instructions: Discharge Instructions Activity: You may use your fingers for light activity. You should limit any excessive motion or forceful gripping until the sutures have been removed. Dressings: You should keep the initial surgical dressing in place for at least 3 days. You may remove your dressings and get the wound wet after 3 days. You should keep the dressings and the wound clean at all times. You may keep the initial dressing in place until your follow-up but keep the wound covered with light gauze until the sutures are removed. Medications: - You should take Tylenol and Ibuprofen around the clock as prescribed or per neurological surgery teacher's recommendations. - You have Hydrocodone prescribed for breakthrough pain control. Take only as needed and limit use as much as possible. This may cause constipation. Follow-up: 7-10 days for wound check and suture removal. Referrals: Jose Oliver MD [ [facility] STAFF PHYSICIAN] - Activity:: Activity as Tolerated Remove Dressings/Wound Care:: 72 hours Shower/Bathe:: 72 hours Diet:: As Tolerated Discharge Orders Discharge Orders: Discharge Order (Routine); Ordered 08/10/20 Ordered By: Carey Mercer DS: Diagnosis Discharge Diagnosis (1) Flexor tenosynovitis of finger: Status: Acute
[2020-08-10 12:10] VITALS: BP 128/81; PULSE 80; RESP 15; TEMP 36.4; O2SAT 96
[2020-08-10] MEDS: Sodium Bicarbonate 50 MEQ/50 ML VIAL (12:30)
[2020-08-10 12:57] VITALS: BP 132/82; PULSE 71; RESP 18; TEMP 36.4; O2SAT 98
--- NOTE | 2020-08-10 23:00 | W.PM.OP ---
Date of service: 08/10/20 Time of Service: 13:01 Operative Note Operative Note DATE OF PROCEDURE: 08/10/20 PRE-OP DIAGNOSIS: Right ring finger inflammatory flexor tenosynovitis POST-OP DIAGNOSIS: same PROCEDURE: Right ring finger flexor tenosynovectomy SURGEON: Jose Oliver ANESTHESIA TYPE: Local By Surgeon Refer to Anesthesia Record PATHOLOGY: none sent TOURNIQUET TIME: 0 COMPLICATIONS: None Patient was transported to: same day Patient's condition: stable Indications: I have seen Brent in clinic for a painful ring finger after trigger release. He has no signs of infection but has notable swelling and pain on passive extension and resisted flexion suggesting of flexor tenosynovitis but no recurrence of triggering. He has been diligent with a home exercise program but continues have symptoms. Therefore, discussed treatment options including proceeding with a tenosynovectomy and scar removal. He feels like this is necessary and desired to proceed. I reviewed the risks of the procedure to include, but not limited to, bleeding, infection, pain, stiffness, incomplete release, damage to nerves or vessels, continued catching, recurrence. Despite these risks, the patient elected to proceed. Findings: There is a notable scar between the skin and the flexor tendons. However, at the level of the tendons there is dense inflammatory tissue seen encompassing the entirety of the flexor tendons. This was resected sharply off of the flexor tendons. The flexor tendons were inspected and the patient was able to move the finger without any catching, clicking, or locking. There is no damage to the flexor tendons appreciated. Procedure Description: Brent was greeted in the preoperative holding area where the correct side was identified and marked. The consent was reviewed with the patient and signed. All questions were answered. He was taken back to the operating room. The patient was placed into the supine position on the operating room table with the right arm on an arm board. All bony prominences were well padded. No prophylactic antibiotics were administered since this was a clean, elective hand surgical case. The right arm was then prepped with Chloraprep and draped in a standard fashion with stockinette and extremity drape. A timeout to confirm correct identity, side and site, procedure, allergies, anesthesia, and medical concerns was performed. The surgical site was marked as a Brenda type incision directly over the A1 monica of the involved digit. This area was then anesthetized with 1% Lidocaine with epinephrine and buffered with sodium bicarbonate. The patient tolerated this well and once the anesthetic had setup, the procedure began. The skin was incised sharply. Blunt dissection was used for deeper dissection. There is dense scar tissue seen between the skin and the site of the A1 monica release. This was resected sharply. I then able to bluntly dissect down to the level of the flexor tendon. Flexor tendons were inspected and there was some mild scarring on top of this which was released. Interestingly, the tendons were enveloped in a densely red inflammatory tenosynovium. This was resected sharply from both tendon working proximally and distally. There is no apparent area or point of constriction. The tendons were removed from the wound and inspected and showed no signs of injury, tearing, or fraying. The tendons were then returned and the patient was asked to move the finger into deep flexion and back to extension. The hand was then once more inspected for any A0 monica or area of possible constriction. The wound was then irrigated and the skin was closed with 4-0 Nylon. This was dressed with gauze and a Conform dressing. The patient tolerated the procedure well and was returned to the Same Day Surgery area in a stable condition suffering no known complication.
== END 2020-08-10 13:11 | disposition home or self-care (01) ==
LOC: SUR 11:39
PROVIDERS: PCP Internal Medicine; Visit Provider Student in an Organized Health Care Education/Training Program
PROC: (CPT 26055; principal; 2020-08-10 13:15)
DX: M65.841 Other synovitis and tenosynovitis, right hand (principal)
CPT/HCPCS: 26145

== ENCOUNTER 2021-01-05 03:25 | Outpatient (CLI) | payer BC, SELFPAY ==
[2021-01-05 09:01] LABS: Abs Immature Grans 0.02 10^3/uL (0.0-0.06); Absolute Basophil Count 0.04 10^3/uL (0.0-0.2); Absolute Eosinophil Count 0.23 10^3/uL (0.0-0.7); Absolute Lymphocyte Count 2.69 10^3/uL (1.2-3.4); Absolute Monocyte Count 1.11 10^3/uL (0.1-0.8); Absolute Neutrophil Count 5.25 10^3/uL (1.2-6.7); Basophils % 0.4; Eosinophils % 2.5; HGB 14.5 g/dL (13.5-17.5); Immature Grans % 0.2; Lymphocytes % 28.8; MCH 34.9 pg (27.0-33.0); MCHC 33.7 % (32.0-36.0); MCV 103.6 fL (80-95); Monocytes % 11.9; Neutrophils % 56.2; Nucleated RBC 0 %; Platelet Count 230 10^3/uL (130-400); RBC 4.15 10^6/uL (4.36-5.78); RDW-SD 49.1 fL; WBC 9.34 10^3/uL (4.4-10.8)
[2021-01-05 09:40] LABS: ALT 33 U/L (16-63); AST 26 U/L (15-37); Albumin 4.2 g/dL (3.4-5.0); Alkaline Phosphatase 66 U/L (46-116); Anion Gap 7.4 mmol/L (3-11); BUN 16 mg/dL (7-18); Bilirubin, Total 0.4 mg/dL (0.2-1.0); C-Reactive Protein 0.26 mg/dL (0.0-0.3); CO2 31.6 mmol/L (21.0-32.0); Calcium 9.1 mg/dL (8.5-10.1); Chloride 107 mmol/L (98-107); Glucose 59 mg/dL (74-106); Potassium 4.5 mmol/L (3.5-5.1); Sodium 146 mmol/L (136-145); Total Protein 7.3 g/dL (6.4-8.2)
[2021-01-05 09:52] LABS: TSH (W/Ref FT4) 5.03 uIU/mL (0.36-3.74)
[2021-01-05 10:26] LABS: FREE T4 0.95 ng/dL (0.76-1.46)
== END 2021-01-05 03:26 | disposition home or self-care (01) ==
LOC: LBO 03:25
PROVIDERS: PCP Internal Medicine; Visit Provider Internal Medicine
DX: E03.9 Hypothyroidism, unspecified (principal)
CPT/HCPCS: 36415; 80053; 84439; 84443; 85025; 86140

== ENCOUNTER 2021-01-18 15:37 | Outpatient (REF) | payer BC, SELFPAY ==
[2021-01-20 10:18] LABS: COVID-19 RT-PCR UVMMC Result Negative (Negative)
== END 2021-01-18 15:38 | disposition home or self-care (01) ==
LOC: LBN 15:37
PROVIDERS: PCP Internal Medicine; Visit Provider Nurse Practitioner
DX: Z20.822 Contact with and (suspected) exposure to COVID-19 (principal); R05.8 Other specified cough
CPT/HCPCS: U0003

== ENCOUNTER 2021-07-21 03:43 | Outpatient (CLI) | payer BC, SELFPAY ==
[2021-07-21 12:46] LABS: TSH 3.81 uIU/mL (0.36-3.74)
== END 2021-07-21 03:44 | disposition home or self-care (01) ==
LOC: LBO 03:43
PROVIDERS: PCP Internal Medicine; Visit Provider Internal Medicine
DX: E03.9 Hypothyroidism, unspecified (principal)
CPT/HCPCS: 36415; 84443

== ENCOUNTER 2021-09-07 02:44 | Outpatient (CLI) | payer BC, SELFPAY ==
[2021-09-07 16:02] LABS: Abs Immature Grans 0.01 10^3/uL (0.0-0.06); Absolute Basophil Count 0.03 10^3/uL (0.0-0.2); Absolute Eosinophil Count 0.26 10^3/uL (0.0-0.7); Absolute Lymphocyte Count 3.39 10^3/uL (1.2-3.4); Absolute Monocyte Count 0.87 10^3/uL (0.1-0.8); Absolute Neutrophil Count 4.51 10^3/uL (1.2-6.7); Basophils % 0.3; Eosinophils % 2.9; HCT 36.3 % (40.0-50.0); HGB 13.5 g/dL (13.5-17.5); Immature Grans % 0.1; Lymphocytes % 37.4; MCH 36.4 pg (27.0-33.0); MCHC 37.2 % (32.0-36.0); MCV 98 fL (80-95); MPV 10.6 fL (8.0-11.0); Monocytes % 9.6; Neutrophils % 49.7; Platelet Count 178 10^3/uL (130-400); RBC 3.71 10^6/uL (4.36-5.78); RDW 12.6 % (11.8-14.1); RDW-SD 45.2 fL; WBC 9.07 10^3/uL (4.4-10.8)
[2021-09-07 16:27] LABS: ALT 27 U/L (16-63); AST 18 U/L (15-37); Albumin 3.6 g/dL (3.4-5.0); Alkaline Phosphatase 56 U/L (46-116); Anion Gap 8.4 mmol/L (3-11); BUN 17 mg/dL (7-18); Bilirubin, Total 0.2 mg/dL (0.2-1.0); C-Reactive Protein 0.54 mg/dL (0.0-0.3); CO2 25.6 mmol/L (21.0-32.0); Calcium 8.4 mg/dL (8.5-10.1); Chloride 104 mmol/L (98-107); Glucose 107 mg/dL (74-106); Potassium 3.8 mmol/L (3.5-5.1); Sodium 138 mmol/L (136-145); Total Protein 6.9 g/dL (6.4-8.2)
== END 2021-09-07 02:45 | disposition home or self-care (01) ==
LOC: LBO 02:44
PROVIDERS: PCP Internal Medicine; Visit Provider Internal Medicine
DX: M05.9 Rheumatoid arthritis with rheumatoid factor, unspecified (principal)
CPT/HCPCS: 36415; 80053; 85025; 86140

== ENCOUNTER → 2021-11-10 02:18 | Outpatient (CLI) | payer BC, SELFPAY ==
--- NOTE | 2021-11-10 | DI.RAD_ITS ---
Exam(s) XR KNEE RT 3V AP,LAT,ED EXAM: XR KNEE RT 3V AP,LAT,ED CLINICAL HISTORY: SEROPOSITIVE RHEUMATOID ARTHRITIS,M05.9,? OA VS RA OR BOTH. TECHNIQUE: 2D digital imaging was performed of the right knee. Three views obtained. AP, lateral, M erchant and PA tunnel views were obtained. COMPARISON: No priors for comparison. FINDINGS: BONES: No acute fracture is present. No bony destructive lesion is seen. JOINTS: There is periarticular spurring in the lateral femoral tibial and patellofemoral joint. There is mild narrowing of the medial femoral tibial joint. There is a joint effusion present. SOFT TISSUE: Normal. IMPRESSION: Moderate osteoarthritis of the right knee. DATA REPOSITORY: RADIATION DOSE DELIVERED:
--- NOTE | 2021-11-10 | DI.RAD_ITS ---
Exam(s) XR KNEE LT 3V AP,LAT,ED EXAM: XR KNEE LT 3V AP,LAT,ED CLINICAL HISTORY: SEROPOSITIVE RHEUMATOID ARTHRITIS, M05.9,? OA VS RA OR BOTH. TECHNIQUE: 2D digital imaging was performed of the left knee. Three images were obtained. Merchant ,AP, lateral and PA tunnel views were obtained. COMPARISON: No priors for comparison. FINDINGS: BONES: No acute fracture is present. No bony destructive lesion is seen. JOINTS: Moderate narrowing of the medial femoral tibial joint. Periarticular spurring involving all 3 joint compartments. Mild suprapatellar joint effusion. SOFT TISSUE: Atherosclerosis. IMPRESSION: Moderate osteoarthritis of the left knee. DATA REPOSITORY: RADIATION DOSE DELIVERED:
== END ==
PROVIDERS: PCP Internal Medicine; Visit Provider Internal Medicine
DX: M17.11 Unilateral primary osteoarthritis, right knee (principal)
CPT/HCPCS: 73562

== ENCOUNTER 2022-02-02 04:03 | Outpatient (CLI) | payer BC, SELFPAY ==
[2022-02-02 09:31] LABS: Abs Immature Grans 0.03 10^3/uL (0.0-0.06); Absolute Basophil Count 0.04 10^3/uL (0.0-0.2); Absolute Eosinophil Count 0.35 10^3/uL (0.0-0.7); Absolute Lymphocyte Count 2.53 10^3/uL (1.2-3.4); Absolute Monocyte Count 1.01 10^3/uL (0.1-0.8); Absolute Neutrophil Count 5.44 10^3/uL (1.2-6.7); Basophils % 0.4; Eosinophils % 3.7; HCT 40.5 % (40.0-50.0); Immature Grans % 0.3; Lymphocytes % 26.9; MCH 34.7 pg (27.0-33.0); MCHC 34.6 % (32.0-36.0); MCV 101 fL (80-95); MPV 11.1 fL (8.0-11.0); Monocytes % 10.7; Platelet Count 185 10^3/uL (130-400); RBC 4.03 10^6/uL (4.36-5.78); RDW 13.1 % (11.8-14.1); RDW-SD 48.9 fL
[2022-02-02 10:09] LABS: ALT 35 U/L (16-63); AST 22 U/L (15-37); Albumin 4.3 g/dL (3.4-5.0); Alkaline Phosphatase 63 U/L (46-116); Anion Gap 5.3 mmol/L (3-11); BUN 26 mg/dL (7-18); Bilirubin, Total 0.5 mg/dL (0.2-1.0); C-Reactive Protein 0.08 mg/dL (0.0-0.3); CO2 28.7 mmol/L (21.0-32.0); CREATININE 1.1 mg/dL (0.70-1.30); Calcium 8.7 mg/dL (8.5-10.1); Chloride 105 mmol/L (98-107); Estimated GFR 75.43 (mL/min/1.73m2); Glucose 95 mg/dL (74-106); Potassium 3.8 mmol/L (3.5-5.1); Sodium 139 mmol/L (136-145); Total Protein 7.6 g/dL (6.4-8.2)
== END 2022-02-02 04:04 | disposition home or self-care (01) ==
LOC: LBO 04:03
PROVIDERS: PCP Internal Medicine; Visit Provider Internal Medicine
DX: M05.9 Rheumatoid arthritis with rheumatoid factor, unspecified (principal)
CPT/HCPCS: 36415; 80053; 85025; 86140

== ENCOUNTER 2022-08-16 12:32 | Outpatient (CLI) | payer BC, SELFPAY ==
[2022-08-16 12:41] LABS: Abs Immature Grans 0.01 10^3/uL (0.0-0.06); Absolute Basophil Count 0.05 10^3/uL (0.0-0.2); Absolute Eosinophil Count 0.29 10^3/uL (0.0-0.7); Absolute Lymphocyte Count 3.05 10^3/uL (1.2-3.4); Absolute Monocyte Count 0.83 10^3/uL (0.1-0.8); Absolute Neutrophil Count 4.62 10^3/uL (1.2-6.7); Basophils % 0.6; Eosinophils % 3.3; HCT 38.9 % (40.0-50.0); HGB 14.1 g/dL (13.5-17.5); Immature Grans % 0.1; Lymphocytes % 34.5; MCH 35.5 pg (27.0-33.0); MCHC 36.2 % (32.0-36.0); MCV 98 fL (80-95); MPV 11.1 fL (8.0-11.0); Monocytes % 9.4; Neutrophils % 52.1; Platelet Count 171 10^3/uL (130-400); RBC 3.97 10^6/uL (4.36-5.78); RDW 12.9 % (11.8-14.1); RDW-SD 45.8 fL; WBC 8.85 10^3/uL (4.4-10.8)
[2022-08-16 14:14] LABS: ALT 34 U/L (16-63); AST 22 U/L (15-37); Albumin 3.8 g/dL (3.4-5.0); Alkaline Phosphatase 63 U/L (46-116); Anion Gap 9.6 mmol/L (3-11); BUN 18 mg/dL (7-18); Bilirubin, Total 0.5 mg/dL (0.2-1.0); CO2 26.4 mmol/L (21.0-32.0); CREATININE 1.1 mg/dL (0.70-1.30); Calcium 8.9 mg/dL (8.5-10.1); Chloride 106 mmol/L (98-107); Estimated GFR 75.43 (mL/min/1.73m2); Glucose 125 mg/dL (74-106); Potassium 3.9 mmol/L (3.5-5.1); Sodium 142 mmol/L (136-145)
== END 2022-08-16 12:33 | disposition home or self-care (01) ==
LOC: LBO 12:32
PROVIDERS: PCP Nurse Practitioner Adult Health; Visit Provider Nurse Practitioner Adult Health
DX: M05.9 Rheumatoid arthritis with rheumatoid factor, unspecified (principal)
CPT/HCPCS: 36415; 80053; 85025; 86140

== ENCOUNTER 2022-12-08 02:27 | Outpatient (CLI) | payer BC, SELFPAY ==
[2022-12-08 12:37] LABS: Abs Immature Grans 0.01 10^3/uL (0.0-0.06); Absolute Basophil Count 0.02 10^3/uL (0.0-0.2); Absolute Eosinophil Count 0.17 10^3/uL (0.0-0.7); Absolute Lymphocyte Count 3.01 10^3/uL (1.2-3.4); Absolute Monocyte Count 0.78 10^3/uL (0.1-0.8); Basophils % 0.3; Eosinophils % 2.6; HGB 13.6 g/dL (13.5-17.5); Immature Grans % 0.2; Lymphocytes % 46.4; MCH 34.9 pg (27.0-33.0); MCHC 35.8 % (32.0-36.0); MCV 97 fL (80-95); MPV 10.5 fL (8.0-11.0); Neutrophils % 38.5; Platelet Count 185 10^3/uL (130-400); RDW 13.2 % (11.8-14.1); RDW-SD 46.8 fL; WBC 6.49 10^3/uL (4.4-10.8)
[2022-12-08 13:03] LABS: ALT 38 U/L (16-63); AST 19 U/L (15-37); Albumin 3.8 g/dL (3.4-5.0); Alkaline Phosphatase 68 U/L (46-116); BUN 20 mg/dL (7-18); Bilirubin, Total 0.4 mg/dL (0.2-1.0); C-Reactive Protein 0.31 mg/dL (0.0-0.3); Calcium 9.2 mg/dL (8.5-10.1); Chloride 104 mmol/L (98-107); Estimated GFR 84.05 (mL/min/1.73m2); Glucose 101 mg/dL (74-106); Potassium 3.7 mmol/L (3.5-5.1); Sodium 137 mmol/L (136-145); Total Protein 7.4 g/dL (6.4-8.2)
== END 2022-12-08 02:28 | disposition home or self-care (01) ==
LOC: LBO 02:27
PROVIDERS: PCP Nurse Practitioner Adult Health; Visit Provider Internal Medicine
DX: M05.9 Rheumatoid arthritis with rheumatoid factor, unspecified (principal)
CPT/HCPCS: 36415; 80053; 85025; 86140

== ENCOUNTER 2023-05-30 04:41 | Outpatient (CLI) | payer BC, SELFPAY ==
[2023-05-30 08:00] LABS: Abs Immature Grans 0.01 10^3/uL (0.0-0.06); Absolute Basophil Count 0.03 10^3/uL (0.0-0.2); Absolute Lymphocyte Count 3.34 10^3/uL (1.2-3.4); Absolute Monocyte Count 0.87 10^3/uL (0.1-0.8); Absolute Neutrophil Count 3.75 10^3/uL (1.2-6.7); Basophils % 0.4; Eosinophils % 4.8; HCT 42.2 % (40.0-50.0); HGB 14.6 g/dL (13.5-17.5); Immature Grans % 0.1; Lymphocytes % 39.8; MCHC 34.6 % (32.0-36.0); MCV 98 fL (80-95); MPV 10.7 fL (8.0-11.0); Monocytes % 10.4; Neutrophils % 44.5; Platelet Count 206 10^3/uL (130-400); RBC 4.29 10^6/uL (4.36-5.78); RDW 12.9 % (11.8-14.1); RDW-SD 46.1 fL
[2023-05-30 08:25] LABS: TSH (W/Ref FT4) 4.01 uIU/mL (0.36-3.74)
[2023-05-30 08:46] LABS: FREE T4 0.92 ng/dL (0.76-1.46)
[2023-05-30 09:32] LABS: Calculated LDL 144 mg/dL (<100); Cholesterol 218 mg/dL (<200); HDL Cholesterol 53 mg/dL (40-60); Triglyceride 105 mg/dL (<150)
[2023-05-30 09:53] LABS: ALT 38 U/L (16-63); AST 22 U/L (15-37); Albumin 3.8 g/dL (3.4-5.0); Alkaline Phosphatase 66 U/L (46-116); Anion Gap 9.7 mmol/L (3-11); BUN 20 mg/dL (7-18); Bilirubin, Total 0.4 mg/dL (0.2-1.0); CO2 26.3 mmol/L (21.0-32.0); Calcium 8.7 mg/dL (8.5-10.1); Chloride 104 mmol/L (98-107); Estimated GFR 84.05 (mL/min/1.73m2); Glucose 92 mg/dL (74-106); Potassium 3.8 mmol/L (3.5-5.1); Sodium 140 mmol/L (136-145); Total Protein 7.4 g/dL (6.4-8.2)
== END 2023-05-30 04:42 | disposition home or self-care (01) ==
LOC: LBO 04:41
PROVIDERS: Internal Medicine; PCP Nurse Practitioner Adult Health; Referring Provider Nurse Practitioner Adult Health; Visit Provider Nurse Practitioner Adult Health
DX: E03.9 Hypothyroidism, unspecified (principal); E78.5 Hyperlipidemia, unspecified; M05.9 Rheumatoid arthritis with rheumatoid factor, unspecified
CPT/HCPCS: 36415; 80048; 80053; 80061; 84439; 84443; 85025

== ENCOUNTER 2023-08-17 02:39 | Outpatient (CLI) | payer BC, SELFPAY ==
[2023-08-17 11:22] LABS: Abs Immature Grans 0.02 10^3/uL (0.0-0.06); Absolute Basophil Count 0.04 10^3/uL (0.0-0.2); Absolute Eosinophil Count 0.28 10^3/uL (0.0-0.7); Absolute Lymphocyte Count 3.34 10^3/uL (1.2-3.4); Absolute Monocyte Count 0.79 10^3/uL (0.1-0.8); Absolute Neutrophil Count 3.77 10^3/uL (1.2-6.7); Basophils % 0.5 %; Eosinophils % 3.4 %; HCT 42.1 % (40.0-50.0); HGB 14.8 g/dL (13.5-17.5); Immature Grans % 0.2 %; Lymphocytes % 40.5 %; MCH 34.6 pg (27.0-33.0); MCHC 35.2 % (32.0-36.0); MCV 98 fL (80-95); MPV 10.1 fL (8.0-11.0); Monocytes % 9.6 %; Neutrophils % 45.8 %; Platelet Count 208 10^3/uL (130-400); RBC 4.28 10^6/uL (4.36-5.78); RDW 13.2 % (11.8-14.1); RDW-SD 47.8 fL; WBC 8.24 10^3/uL (4.4-10.8)
[2023-08-17 12:14] LABS: ALT 34 U/L (16-63); AST 21 U/L (15-37); Albumin 3.8 g/dL (3.4-5.0); Alkaline Phosphatase 68 U/L (46-116); Anion Gap 9.7 mmol/L (3-11); BUN 14 mg/dL (7-18); Bilirubin, Total 0.4 mg/dL (0.2-1.0); CO2 28.3 mmol/L (21.0-32.0); Calcium 8.8 mg/dL (8.5-10.1); Chloride 104 mmol/L (98-107); Estimated GFR 84.05 (mL/min/1.73m2); Glucose 105 mg/dL (74-106); Potassium 3.8 mmol/L (3.5-5.1); Sodium 142 mmol/L (136-145); Total Protein 7.3 g/dL (6.4-8.2)
== END 2023-08-17 02:40 | disposition home or self-care (01) ==
LOC: LBO 02:40
PROVIDERS: PCP Nurse Practitioner Adult Health; Visit Provider Internal Medicine
DX: M05.9 Rheumatoid arthritis with rheumatoid factor, unspecified (principal)
CPT/HCPCS: 36415; 80053; 85025

== ENCOUNTER 2024-02-15 01:13 | Outpatient (CLI) | payer BC, SELFPAY ==
[2024-02-15 17:13] LABS: ESR 2 mm/hr (0-20)
[2024-02-15 17:14] LABS: Abs Immature Grans 0.02 10^3/uL (0.0-0.06); Absolute Basophil Count 0.05 10^3/uL (0.0-0.2); Absolute Eosinophil Count 0.22 10^3/uL (0.0-0.7); Absolute Lymphocyte Count 3.96 10^3/uL (1.2-3.4); Absolute Monocyte Count 0.88 10^3/uL (0.1-0.8); Absolute Neutrophil Count 3.17 10^3/uL (1.2-6.7); Basophils % 0.6 %; Eosinophils % 2.7 %; HCT 41.1 % (40.0-50.0); HGB 14.4 g/dL (13.5-17.5); Immature Grans % 0.2 %; Lymphocytes % 47.7 %; MCH 34.9 pg (27.0-33.0); MCV 100 fL (80-95); MPV 10.3 fL (8.0-11.0); Monocytes % 10.6 %; Neutrophils % 38.2 %; Platelet Count 202 10^3/uL (130-400); RBC 4.13 10^6/uL (4.36-5.78); RDW 12.9 % (11.8-14.1); RDW-SD 47.5 fL
[2024-02-15 17:35] LABS: ALT 29 U/L (16-63); AST 23 U/L (15-37); Albumin 4.1 g/dL (3.4-5.0); Alkaline Phosphatase 69 U/L (46-116); Anion Gap 9.3 mmol/L (3-11); BUN 18 mg/dL (7-18); Bilirubin, Total 0.41 mg/dL (0.2-1.0); CO2 25.7 mmol/L (21.0-32.0); CREATININE 1.2 mg/dL (0.70-1.30); Chloride 107 mmol/L (98-107); Estimated GFR 67.11 (mL/min/1.73m2); Glucose 94 mg/dL (74-106); Potassium 3.8 mmol/L (3.5-5.1); Sodium 142 mmol/L (136-145); Total Protein 7.5 g/dL (6.4-8.2)
[2024-02-15 17:36] LABS: C-Reactive Protein < 0.50 mg/dL (<or=0.5)
== END 2024-02-15 01:14 | disposition home or self-care (01) ==
LOC: LBO 01:13
PROVIDERS: PCP Nurse Practitioner Adult Health; Visit Provider Internal Medicine
DX: M05.9 Rheumatoid arthritis with rheumatoid factor, unspecified (principal)
CPT/HCPCS: 36415; 80053; 85652; 85025; 86140

== ENCOUNTER 2024-07-25 11:29 | Outpatient (CLI) | payer BC, SELFPAY ==
[2024-07-25 10:26] LABS: Abs Immature Grans 0.02 10^3/uL (0.0-0.06); Absolute Basophil Count 0.04 10^3/uL (0.0-0.2); Absolute Eosinophil Count 0.22 10^3/uL (0.0-0.7); Absolute Lymphocyte Count 2.75 10^3/uL (1.2-3.4); Absolute Monocyte Count 0.93 10^3/uL (0.1-0.8); Absolute Neutrophil Count 4.22 10^3/uL (1.2-6.7); Basophils % 0.5 %; Eosinophils % 2.7 %; HCT 41.6 % (40.0-50.0); Immature Grans % 0.2 %; Lymphocytes % 33.6 %; MCH 35.6 pg (27.0-33.0); MCHC 36.1 % (32.0-36.0); MCV 99 fL (80-95); Monocytes % 11.4 %; Neutrophils % 51.6 %; Platelet Count 198 10^3/uL (130-400); RBC 4.21 10^6/uL (4.36-5.78); RDW-SD 46.7 fL; WBC 8.18 10^3/uL (4.4-10.8)
[2024-07-25 10:29] LABS: ESR 1 mm/hr (0-20)
[2024-07-25 10:58] LABS: ALT 39 U/L (16-63); AST 29 U/L (15-37); Alkaline Phosphatase 68 U/L (46-116); Anion Gap 7.1 mmol/L (3-11); BUN 18 mg/dL (7-18); Bilirubin, Total 0.4 mg/dL (0.2-1.0); CO2 28.9 mmol/L (21.0-32.0); CREATININE 1.1 mg/dL (0.70-1.30); Calcium 8.9 mg/dL (8.5-10.1); Chloride 105 mmol/L (98-107); Glucose 82 mg/dL (74-106); Potassium 3.9 mmol/L (3.5-5.1); Sodium 141 mmol/L (136-145); Total Protein 7.4 g/dL (6.4-8.2)
[2024-07-25 11:00] LABS: C-Reactive Protein < 0.50 mg/dL (<or=0.5)
== END 2024-07-25 11:30 | disposition home or self-care (01) ==
LOC: LBO 11:29
PROVIDERS: PCP Nurse Practitioner Adult Health; Visit Provider Internal Medicine Rheumatology
DX: M05.9 Rheumatoid arthritis with rheumatoid factor, unspecified (principal)
CPT/HCPCS: 36415; 80053; 85652; 85025; 86140

== ENCOUNTER 2024-12-02 02:44 | Outpatient (CLI) | payer BC, SELFPAY ==
[2024-12-02 15:22] LABS: TSH (W/Ref FT4) 2.44 uIU/mL (0.36-3.74)
== END 2024-12-02 02:45 | disposition home or self-care (01) ==
LOC: LBO 02:44
PROVIDERS: PCP Nurse Practitioner Adult Health; Visit Provider Nurse Practitioner Adult Health
DX: E03.9 Hypothyroidism, unspecified (principal)
CPT/HCPCS: 36415; 84443

== ENCOUNTER 2024-12-29 03:06 | Outpatient (CLI) | payer BC, SELFPAY ==
[2024-12-29 08:27] LABS: Abs Immature Grans 0.02 10^3/uL (0.0-0.06); HCT 42.6 % (40.0-50.0); HGB 15.0 g/dL (13.5-17.5); Immature Grans % 0.2 %; MCH 35.0 pg (27.0-33.0); MCHC 35.2 % (32.0-36.0); MCV 100 fL (80-95); MPV 10.3 fL (8.0-11.0); Platelet Count 198 10^3/uL (130-400); RBC 4.28 10^6/uL (4.36-5.78); RDW 13.1 % (11.8-14.1); RDW-SD 47.8 fL; WBC 8.59 10^3/uL (4.4-10.8)
[2024-12-29 09:30] LABS: ALT 40 U/L (16-63); AST 26 U/L (15-37); Albumin 3.8 g/dL (3.4-5.0); Alkaline Phosphatase 68 U/L (46-116); Anion Gap 8.8 mmol/L (3-11); BUN 20 mg/dL (7-18); Bilirubin, Total 0.6 mg/dL (0.2-1.0); CO2 29.2 mmol/L (21.0-32.0); Calcium 8.9 mg/dL (8.5-10.1); Chloride 107 mmol/L (98-107); Estimated GFR 94.19 (mL/min/1.73m2); Glucose 80 mg/dL (74-106); Potassium 4.1 mmol/L (3.5-5.1); Sodium 145 mmol/L (136-145); Total Protein 7.4 g/dL (6.4-8.2)
== END 2024-12-29 03:07 | disposition home or self-care (01) ==
PROVIDERS: PCP Nurse Practitioner Adult Health; Visit Provider Internal Medicine
DX: M05.9 Rheumatoid arthritis with rheumatoid factor, unspecified (principal)
CPT/HCPCS: 36415; 80053; 85025